=== PATIENT | male | born 1950 | race Caucasian/White ===

== ENCOUNTER 2022-09-30 08:33 | Emergency (ER) | payer MEDICARE, SELFPAY ==
[2022-09-30 08:48] VITALS: BP 123/85; PULSE 76; RESP 16; TEMP 37; O2SAT 99
--- NOTE | 2022-09-30 08:54 | ED.URI ---
HPI - URI/Sore Throat General Chief Complaint: Upper Respiratory Infection Stated Complaint: Chest congestion Time Seen by Provider: 09/30/22 08:54 Source: patient Mode of arrival: ambulatory Limitations: no limitations History of Present Illness HPI Narrative: 72 yo M presents with c/o cough, chest congestion for 3 days. Afebrile. Reports he has some family in town that were sick and he thinks they made him sick. Taking mucinex multiple symptom. continues to cough. Has more family coming in town in 2 days and needs to knock this out . Denies CP and SOB. All systems reviewed and negative except as noted above. Related Data Home Medications Medication Instructions Recorded Confirmed amlodipine 5 mg tablet 5 mg PO DAILY 09/30/22 09/30/22 Allergies Allergy/AdvReac Type Severity Reaction Status Date / Time No Known Allergies Allergy Unknown Verified 09/30/22 08:46 Review of Systems Review of Systems: CONSTITUTIONAL: Denies fever, chills, or sweats. EYES: Denies visual changes, redness, or discharge. ENT: Denies rhinorrhea, congestion, sore throat, or otalgia. CARDIOVASCULAR: Denies chest pain, palpitations, or edema. RESPIRATORY: Reports cough, congestion. Denies dyspnea. GASTROINTESTINAL: Denies abdominal pain, nausea, vomiting, or diarrhea. GENITOURINARY: Denies dysuria or hematuria. SKIN: Denies rash or itching. MUSCULOSKELETAL: Denies back pain, joint pain, or myalgia. NEUROLOGIC: Denies headache, numbness, or weakness. PSYCHIATRIC: Denies anxiety or depression. All other systems reviewed are negative, except as documented in HPI. PMFSH Comments At time of signature, agree with nursing past medical, surgical, social and family history. There is no relevant family history pertinent to the presenting complaint. Exam Narrative: GENERAL: This is a well-nourished, well-developed patient, in no apparent distress. HEAD: normocephalic, atraumatic. EYES: PERRL. Sclera clear/white. Vision is grossly intact. EARS: External ears normal, auditory canals clear and without drainage, TMs normal without perforation. Hearing grossly intact. NOSE: External nose normal with no obvious nasal discharge, nares without redness, no rhinorrhea. THROAT: Mucous membranes moist, posterior pharynx clear. NECK: Neck supple, non-tender without lymphadenopathy, masses or thyromegaly. CARDIOVASCULAR: Regular rate and rhythm without murmurs, gallops, or rubs. RESPIRATORY: Clear to auscultation. Breath sounds equal bilaterally. No wheezes, rales, or rhonchi. SKIN: warm, Dry, intact with no suspicious lesions or rash, good texture and turgor. NEURO: awake, alert, and oriented to person, place and time. There were no obvious focal neurologic abnormalities. EXTREMITIES: No joint tenderness, effusion, or edema noted. Course Course Level of Care: Express Care Visit Vital Signs Vital signs: Vital Signs Temperature 37.0 C 09/30/22 08:48 Pulse Rate 76 09/30/22 08:48 Respiratory Rate 16 09/30/22 08:48 Blood Pressure 123/85 09/30/22 08:48 Pulse Oximetry 99 09/30/22 08:48 Temperature 37.0 C 09/30/22 08:48 Pulse Rate 76 09/30/22 08:48 Respiratory Rate 16 09/30/22 08:48 Blood Pressure 123/85 09/30/22 08:48 Pulse Oximetry 99 09/30/22 08:48 Reviewed MDM - URI/Sore Throat MDM Narrative Medical decision making narrative: Patient is aware of diagnosis, understands and agrees to treatment plan. Anticipatory guidance given. Patient agrees to follow-up as directed and is aware of reasons to seek care at the emergency department. Portions of this record may have been created with voice recognition software pt requesting abx. explained to pt that his symptoms are viral and exam is normal but hes stating he wont get better without abx. Discharge Plan Discharge Clinical Impression: URI with cough and congestion Patient Disposition: Home, Self-Care Condition: Stable Instructions: Anti
== END 2022-09-30 09:03 | disposition home or self-care (01) ==
PROVIDERS: Emergency Provider Nurse Practitioner Family; PCP Internal Medicine
DX: J06.9 Acute upper respiratory infection, unspecified (principal); R05.9 Cough, unspecified; I10 Essential (primary) hypertension
CPT/HCPCS: 99203; G0463